=== PATIENT | male | born 1955 | race Caucasian/White ===

== ENCOUNTER 2018-10-03 08:57 | Emergency (ER) | payer OTHER, SELFPAY ==
[2018-10-03 09:02] VITALS: BP 151/76; PULSE 68; RESP 12; TEMP 36.8; O2SAT 100
--- NOTE | 2018-10-03 09:22 | ED.UPPEXIN ---
HPI - Extremity Injury (Upper) General Chief Complaint: Extremity Injury, Upper Stated Complaint: numb/tingle hands x2 days Time Seen by Provider: 10/03/18 09:06 Source: patient Mode of arrival: ambulatory Limitations: no limitations History of Present Illness HPI narrative: Patient is a 63-year-old male presenting with bilateral hand numbness and tingling ongoing for the last 3 days. He has history of a CABG in both radial arteries have been used. His he denies any coldness. 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 He feels like they go to sleep at times. He has no chest pain or shortness of breath or back pain. He denies any specific injury MD complaint: injury to: left, right and hand Onset (ago): day(s) (3) Related Data Allergies Allergy/AdvReac Type Severity Reaction Status Date / Time No Known Drug Allergies Allergy Verified 10/03/18 09:14 Review of Systems Review of Systems ROS Unobtainable: All systems reviewed & are unremarkable except as noted in HPI and below Constitutional Denies chills, Denies fever(s), Denies lethargy and Denies weakness ENT Ears, Nose, Mouth, and Throat: Denies neck pain Cardiovascular Denies chest pain, Denies irregular heart rhythm, Denies lightheadedness, Denies palpitations, Denies dyspnea, Denies dyspnea on exertion and Denies orthopnea Respiratory Denies cough, Denies dyspnea, Denies dyspnea on exertion and Denies wheezing Gastrointestinal Gastrointestinal: Denies abdominal pain, Denies change in bowel habits, Denies diarrhea, Denies nausea and Denies vomiting Genitourinary Denies hematuria, Denies flank pain, Denies urinary incontinence and Denies urinary urgency Musculoskeletal Reports system reviewed and no additional complaints, except as docu, Denies muscle weakness and Denies neck pain Integumentary/Breasts Denies pruritus, Denies erythema, Denies rash and Denies wounds Neurologic Denies weakness Endocrine Denies palpitations Allergic/Immunologic Denies wheezing [facility] Medical History Hyperlipidemia (Acute) Hypertension (Acute) Peripheral vascular disease (Acute) S/P CABG x 4 (Acute) Surgical History S/P CABG x 4 (Acute) Social History Smoking Status: Current some day smoker alcohol intake: never substance use type: does not use Exam Initial Vital Signs Initial Vital Signs: Vital Signs Temperature 98.3 F 10/03/18 09:02 Pulse Rate 68 10/03/18 09:02 Respiratory Rate 12 10/03/18 09:02 Blood Pressure 151/76 H 10/03/18 09:02 Pulse Oximetry 100 10/03/18 09:02 GENERAL: Well-appearing, well-nourished and in no acute distress. HEENT: Head atraumatic,EOMI, pupils reactive, neck is supple CARDIOVASCULAR: Regular rate and rhythm without murmurs, rubs or gallops. RESPIRATORY: Breath sounds equal bilaterally, no wheezes rales or rhonchi. ABDOMEN: Soft, nontender. Normoactive bowel sounds all 4 quadrants. No guarding or rebound. EXTREMITIES: Normal range of motion, no clubbing or edema. Neurovascularly intact Both forearms have a radial artery scars. His bilateral strong ulnar pulses 2/4. Cap refill less than 2 sec. Radial ulnar and median nerves intact. Negative Phalen and Tinel sign NEUROLOGICAL: Alert and oriented x4.Normal gait and speech. Cranial nerves II through XII grossly intact. SKIN: Warm, dry, no laceration, no petechiae, no rashes or lesions. Course Vital Signs - 8 hr 10/03/18 09:02 Temperature 98.3 F Pulse Rate 68 Respiratory Rate 12 Blood Pressure 151/76 H Pulse Oximetry 100 MDM - Extremity Injury (Upper) MDM Narrative Medical decision making narrative: The patient has bilateral hand numbness consistent with carpal tunnel based on history and job profession. He has known coronary artery disease and is an avid smoker. 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 He has appointment with his PCP today at 3:00 p.m.. He is given bilateral wrist splints. Discharge Plan Departure Patient Disposition: Home Clinical Impression: Bilateral carpal tunnel syndrome Discharge Date/Time: 10/03/18 09:48 Interventions: ED Discharge Assessment Last Done: 10/03/18 09:47 Instructions: Carpal Tunnel Syndrome Activity Restrictions/Additional Instructions: *You have been diagnosed with carpal tunnel *What to do: Wear wrist splints bilaterally while at work an active also at night may remove for showering and short times during the day *Continue to take medications as directed *Follow up with your primary care provider as scheduled today at 3:00 p.m. *Return to ER if you should have increased weakness, chest pain, shortness of breath or any new, worsening or concerning symptoms Referrals: Heriberto Vivas MD [Primary Care Provider] -
== END 2018-10-03 09:48 | disposition home or self-care (01) ==
PROVIDERS: Emergency Provider Emergency Medicine; Family Provider Family Medicine; PCP Family Medicine
DX: G56.03 Carpal tunnel syndrome, bilateral upper limbs (principal)
CPT/HCPCS: 29260; 99282

== ENCOUNTER 2020-02-26 20:00 | Emergency (ER) | payer OTHER, SELFPAY ==
[2020-02-26 20:21] VITALS: BP 149/82; PULSE 74; RESP 24; TEMP 36.7; O2SAT 96
--- NOTE | 2020-02-26 20:58 | ED.EAR ---
HPI - Ear Problem <DANIELA Ramey - Last Filed: 02/26/20 21:03> General Chief complaint: Ear Stated complaint: BUG IN LEFT EAR Time Seen by Provider: 02/26/20 20:46 Source: patient Mode of arrival: Ambulatory Limitations: no limitations History of Present Illness HPI Narrative: The patient is a 65-year-old male current smoker who denies pertinent medical history presents with a chief complaint of a bug in his left ear. Happened approximately 20 minutes prior to arrival when he was speaking on the cell phone outside with brother. He was not able to remove it himself so he came to the emergency department. Moth was removed by nursing in the emergency department Related Data Allergies Allergy/AdvReac Type Severity Reaction Status Date / Time No Known Drug Allergies Allergy Verified 10/03/18 09:14 Review of Systems <DANIELA Ramey - Last Filed: 02/26/20 21:03> Review of Systems Narrative: GENERAL: Denies chills, fatigue, malaise, fever, sweats. HEENT: See HPI RESPIRATORY: Denies dyspnea, cough, wheezing, hemoptysis, sputum. CARDIOVASCULAR: Denies chest pain, palpitations, orthopnea, edema, GASTROINTESTINAL: Denies nausea, vomiting, abdominal pain, diarrhea, constipation, melena. : Denies dysuria, frequency, incontinence, hematuria, urinary retention. MUSCULOSKELETAL: denies weakness, joint pain, or bony pain SKIN: Denies rash, skin lesions, or other NEUROLOGIC: Denies weakness, headache, numbness, change in speech, confusion, seizures, incoordination. PSYCHIATRIC: No concerning psychosocial issues. 12 point review of systems is negative except for those stated above Patient History <DANIELA Ramey - Last Filed: 02/26/20 21:03> Medical History Hyperlipidemia (Acute) Hypertension (Acute) Peripheral vascular disease (Acute) Surgical History S/P CABG x 4 (Acute) Social History Smoking Status: Current some day smoker alcohol intake: never substance use type: does not use Smoking Status: Current some day smoker Exam <ROGELIO Ramey-SUDHEER - Last Filed: 02/26/20 21:03> Narrative Exam Narrative: GENERAL: This is a well-nourished, well-developed patient, in no acute distress HEAD: Atraumatic. Normocephalic. No temporal or scalp tenderness. EYES: Pupils equal round and reactive. Extraocular motions intact. No scleral icterus. No injection or drainage. ENT: Nose without bleeding, purulent drainage or septal hematoma. Airway patent. Bilateral TMs pearly zavala. No foreign bodies bilateral ear canals. NECK: Trachea midline. No JVD or lymphadenopathy. Supple, nontender, no meningeal signs. CARDIOVASCULAR: Regular rate and rhythm RESPIRATORY: No cough. No increased respiratory effort. No accessory muscle use. GASTROINTESTINAL: Abdomen soft, non-tender, nondistended. No hepato-splenomegaly, or palpable masses. No guarding. EXTREMITIES: No clubbing, cyanosis, or edema. No joint tenderness, effusion, or edema noted. NEURO: AOx3. SKIN: No rash or erythema on visible skin Initial Vital Signs Initial Vital Signs: Vital Signs Temperature 98.0 F 02/26/20 20:21 Pulse Rate 74 02/26/20 20:21 Respiratory Rate 24 02/26/20 20:21 Blood Pressure 149/82 H 02/26/20 20:21 Pulse Oximetry 96 02/26/20 20:21 <Heriberto Laguerre DO - Last Filed: 02/26/20 22:19> Initial Vital Signs Initial Vital Signs: Vital Signs Temperature 98.0 F 02/26/20 20:21 Pulse Rate 74 02/26/20 20:21 Respiratory Rate 24 02/26/20 20:21 Blood Pressure 149/82 H 02/26/20 20:21 Pulse Oximetry 96 02/26/20 20:21 Course <ROGELIO Ramey-SUDHEER - Last Filed: 02/26/20 21:03> Vital Signs Vital signs: Vital Signs - 8 hr 02/26/20 20:21 Temperature 98.0 F Pulse Rate 74 Respiratory Rate 24 Blood Pressure 149/82 H Pulse Oximetry 96 <Heriberto Laguerre DO - Last Filed: 02/26/20 22:19> Vital Signs Vital signs: Vital Signs - 8 hr 02/26/20 20:21 Temperature 98.0 F Pulse Rate 74 Respiratory Rate 24 Blood Pressure 149/82 H Pulse Oximetry 96 Medical Decision Making <Leti Leggett, RACKING MACHINE OPERATOR-BC - Last Filed: 02/26/20 21:03> [facility] Narrative Medical decision making narrative: The patient is a 65-year-old male who presents with a chief complaint of a foreign body in his ear. A moth was removed by nursing. He has no acute findings on ENT exam afterwards I discussed at length monitoring for pain, drainage etc. Encouraged follow-up with primary care provider, patient already has an appointment scheduled tomorrow. Patient has no questions or concerns upon discharge and states understanding of return precautions as well as follow-up care. Discharge Plan Departure Patient Disposition: Home Clinical Impression: Ear foreign body Qualifiers: Encounter type: initial encounter Laterality: left Qualified Code(s): T16.2XXA - Foreign body in left ear, initial encounter Discharge Date/Time: 02/26/20 21:08 Instructions: DI for Removal of Foreign Body From Ear Activity Restrictions/Additional Instructions: Thank you for trusting us with your care today Today we removed a bug from your ear Please monitor for any other ear foreign bodies Please come back to emergency department for any acute concerns Referrals: Heriberto Vivas MD [Primary Care Provider] - <Heriberto Laguerre DO - Last Filed: 02/26/20 22:19> Cosign ED Attending Cosignature Attestation: Dr Laguerre Co-Sign Statement: I was available for consultation during this patient's emergency department visit. This chart is signed by myself for administrative purposes only. I did not have direct contact with this patient during this visit. They were seen independently by the APC.
== END 2020-02-26 21:08 | disposition home or self-care (01) ==
PROVIDERS: Emergency Provider Nurse Practitioner Family; Family Provider Family Medicine; PCP Family Medicine
DX: T16.2XXA Foreign body in left ear, initial encounter (principal)
CPT/HCPCS: 99281

== ENCOUNTER 2020-09-27 19:15 | Emergency (ER) | payer OTHER, SELFPAY ==
[2020-09-27 19:20] VITALS: BP 115/73; PULSE 87; RESP 15; TEMP 36.7; O2SAT 95; BMI 25.8
--- NOTE | 2020-09-27 19:40 | ED.WOUNDLAC ---
HPI - Wound/Laceration General Chief Complaint: Wound/Laceration Stated Complaint: left thumb wound from cutting onions Time Seen by Provider: 09/27/20 19:26 Source: patient Mode of arrival: Ambulatory Limitations: no limitations History of Present Illness HPI narrative: 65-year-old gentleman with a history of cardiovascular disease and hypertension in his usual state of health this evening and was chopping vegetables at when he managed to chop off the medial portion of the pad of his left thumb. He is currently on both Plavix and aspirin and has been unable to control the bleeding. Pain is minimal. There are no other injuries. It was a clean knife otherwise. Related Data Allergies Allergy/AdvReac Type Severity Reaction Status Date / Time No Known Drug Allergies Allergy Verified 10/03/18 09:14 Review of Systems Review of Systems Narrative: Remainder of review of systems including constitutional, ENT, cardiovascular, respiratory, GI, , musculoskeletal, skin, neurologic and psychiatric systems reviewed and are unremarkable except as noted in HPI. Patient History Medical History Hyperlipidemia Hypertension Peripheral vascular disease Surgical History S/P CABG x 4 Social History Smoking Status: Current some day smoker alcohol intake: never substance use type: does not use Smoking Status: Current some day smoker alcohol intake frequency: 0-2 drinks per day Substance Use Type: does not use Exam Narrative Exam Narrative: General: Alert appropriate in no acute distress Respiratory: Able to speak in full sentences, no obvious respiratory distress Skin: No obvious rashes, warm and dry Neurologic: Grossly intact no obvious asymmetries or abnormalities Psych: appropriate insight and affect, cooperative Extremity: Left thumb with 1.5 cm wound not involving the nail bed. Small vessel at the base that is still bleeding. Otherwise neurovascularly intact Initial Vital Signs Initial Vital Signs: Vital Signs Temperature 98.1 F 09/27/20 19:20 Pulse Rate 87 09/27/20 19:20 Respiratory Rate 15 09/27/20 19:20 Blood Pressure 115/73 09/27/20 19:20 Pulse Oximetry 95 09/27/20 19:20 Procedures Laceration Repair L thumb: Site: hand Side (If applicable): left Size (cm): 1.5 Description: clean (Partial removal of the distal thumb pad without involving nail bed, bone or deeper structures) Depth: simple, single layer Local Anesthetic: lidocaine 1% and with bicarb Amount of anesthesia used (mL): 4 Pre-repair: irrigated extensively Skin layer closed with: vicryl Size (cm): 4-0 Number of sutures: 2 Technique: simple, interrupted and horizontal mattress (for hemostasis) Course Orders Ordered: Discontinued Medications Bacitracin (Bacitracin Oint 0.9 Gm Pckt) 1 applic TOP NOW ONE Stop: 09/27/20 20:01 Lidocaine/Sodium Bicarbonate (Lido 1%/Sod Bicarb 8.4% (10ml) 10 Ml Syringe) 10 ml INJ NOW ONE Stop: 09/27/20 19:41 Last Admin: 09/27/20 20:00 Dose: 10 ml Documented by: Vital Signs Vital signs: Vital Signs - 8 hr 09/27/20 19:20 Temperature 98.1 F Pulse Rate 87 Respiratory Rate 15 Blood Pressure 115/73 Pulse Oximetry 95 MDM - Wound/Laceration MDM Narrative Medical decision making narrative: Uncomplicated laceration of the left distal thumb had with persistent bleeding despite pressure. patient is on Plavix and aspirin. To sutures placed for hemostasis. Patient tolerated the procedure well. Wound distressed and he is safe for home discharge Discharge Plan Departure Patient Disposition: Home Clinical Impression: Laceration Instructions: DI for Laceration Repair Activity Restrictions/Additional Instructions: Thank you for coming in today I am glad your kitchen knives or so sharp. Fortunately was a nice clean wound to your left thumb. There is a tiny little blood vessel at the bottom that was still bleeding. I put in 2 stitches to help stop the bleeding and close the area that will need to heal by itself. You can use Tylenol if your experiencing any pain. Please keep some antibiotic ointment and a Band-Aid over the wound while it is healing. You will need to have this sutures removed in 5 days on or about October 02 If you have increasing redness, pain or any type of drainage you need to return to the emergency department for further evaluation.
[2020-09-27] MEDS: LIDO 1%/SOD BICARB 8.4% (10ML) 10 ML SYRINGE INJ (20:00)
[2020-09-27] MEDS: BACITRACIN OINT 0.9 GM PCKT 1 APPLIC TOP (20:13)
[2020-09-27] MEDS: ACETAMINOPHEN 325 MG TABLET 650 MG PO (20:18)
[2020-09-27 20:19] VITALS: BP 111/68; PULSE 64; RESP 16; O2SAT 97
== END 2020-09-27 20:19 | disposition home or self-care (01) ==
PROVIDERS: Emergency Provider Emergency Medicine
DX: S61.012A Laceration without foreign body of left thumb without damage to nail, initial encounter (principal); W26.0XXA Contact with knife, initial encounter; E78.5 Hyperlipidemia, unspecified; I10 Essential (primary) hypertension
CPT/HCPCS: 12001; 99281; 99283

== ENCOUNTER → 2022-03-29 07:44 | Outpatient (CLI) | payer OTHER, SELFPAY ==
[2022-03-29 08:08] LABS: COVID19 -Nasal RAPID Negative (Negative)
== END ==
PROVIDERS: PCP Family Medicine; Visit Provider Nurse Practitioner Family
DX: Z20.822 Contact with and (suspected) exposure to COVID-19 (principal)
CPT/HCPCS: 87635

== ENCOUNTER 2022-11-18 08:56 | Day surgery (SDC) | payer OTHER, SELFPAY ==
--- NOTE | 2022-11-18 | PATH_ITS ---
[facility] Accession Number: [id number] No. of containers..02 Tissue . 01 Material submitted: . PART A: colon - SIGMOID POLYPS X3 PART B: rectum - RECTAL POLYP X2 . 01 Diagnosis: A. Sigmoid Colon Polyps: Hyperplastic polyp x3. . B. Rectal Polyps: Tubular adenomas and hyperplastic polyps (2 polyps removed). MRV 11/23/2022 1404 Local . 01 Electronically signed: . Filemon Samuels MD, PhD, Pathologist NPI- [id number] . 01 Gross description: . Part A: SIGMOID POLYPS X3: Received in formalin are 3 fragment(s) of portillo, soft tissue measuring 0.2 x 0.2 x 0.2 cm to 0.6 x 0.2 x 0.2 cm submitted entirely in 1 cassette(s) Part B: RECTAL POLYP X2: Received in formalin are multiple fragment(s) of portillo, soft tissue measuring 0.1 x 0.1 x 0.1 cm to 0.7 x 0.6 x 0.6 cm submitted entirely in 1 cassette(s) /FEMI 11/19/2022 0144 Local . 01 Pathologist provided ICD-10: D12.8, K63.5 . 01 CPT . 679031, 898766 Specimen Comment: A courtesy copy of this report has been sent to [phone] Performed at: 01 [facility] [address] [place] [id number] MD Gustavo Mera MD Phone: [phone]
[2022-11-18 09:10] VITALS: BP 155/88; PULSE 84; RESP 16; TEMP 36.2; O2SAT 97; BMI 25.0
[2022-11-18] MEDS: LACTATED RINGERS 1,000 ML 120 ML IV (09:18)
--- NOTE | 2022-11-18 09:26 | PM.HP.1 ---
History of Present Illness History of Present Illness Date Patient Seen: 11/18/22 Time Patient Seen: 09:26 Chief complaint: Colonoscopy Narrative: Arpan is here for his colonoscopy. Please see the office note from July for details. Patient History Medical History (Updated 07/14/22 @ 15:43 by Fady Campos MD) Hyperlipidemia Hypertension Peripheral vascular disease Surgical History (Updated 11/18/22 @ 09:08 by Nilson Almendarez RN) S/P CABG x 4 Stented coronary artery Family & Social History Social History: household members family lives independently Yes Tobacco & Substance use: Tobacco type cigarettes Smoking Status Current some day smoker Smoking packs per day 1 alcohol intake current alcohol intake frequency 0-2 drinks per day Substance Use Type does not use Meds Home Medications and Allergies Home Medications Medication Instructions Recorded Confirmed Type aspirin 81 mg tablet,delayed 81 mg PO DAILY 07/14/22 11/18/22 History release (Adult Aspirin Regimen) atorvastatin 80 mg tablet 80 mg PO DAILY 07/15/22 11/18/22 History bupropion HCl 150 mg 24 hr tablet, 150 mg PO QAM 07/15/22 11/18/22 History extended release lisinopril 10 mg tablet 10 mg PO DAILY 07/15/22 11/18/22 History metoprolol tartrate 25 mg tablet 25 mg PO BID 07/15/22 11/18/22 History Allergies Allergy/AdvReac Type Severity Reaction Status Date / Time seasonal Allergy Mild Congested Uncoded 07/14/22 15:26 Exam Vital Signs (past 8 hours): - 11/18/22 09:10 Temperature 97.1 F L Pulse Rate 84 Respiratory Rate 16 Blood Pressure 155/88 H Pulse Oximetry 97 Const General: healthy appearing Assessment & Plan Assessment and plan (1) Positive FIT (fecal immunochemical test): Status: Acute Plan Arpan is a 67-year-old man with a positive fit test. We reviewed the risks and benefits of colonoscopy he would like to proceed. Time Spent With Patient Critical Care time: I spent a total of [] minutes of critical care time on this patient's care today; this time is exclusive of procedural time.
--- NOTE | 2022-11-18 10:05 | PM.OP.COLON ---
Operative Date/Time/Diagnoses Date of procedure: 11/18/22 Time of procedure: 10:05 Pre-op diagnosis: Positive fit test Post-op diagnosis: same Procedure & Clinicians Study performed: Colonoscopy Same procedure as scheduled: Yes Surgeon: Fady Campos Procedure Notes Procedure in detail: Surgeon: Fady Campos MD Anesthesia: Maggie Marie FIRST AID OFFICER Procedure: The patient was brought to the endoscopy suite, placed in left lateral decubitus position. The patient was connected to monitoring devices. A time-out was performed. Sedation was administered. Once the patient was adequately sedated, a digital rectal exam was performed and was normal. The scope was then inserted and advanced to the cecum where the appendiceal orifice was identified and photographed. The scope was then slowly withdrawn over greater than 6 minutes. The mucosa was thoroughly inspected. There were 3 polyps in the sigmoid colon. One of them was about 5 mm and 1 was removed with a cold forceps. Two of them were about 8 mm and were removed with cold snare. There were 3 polyps in the rectum. One of these was about a cm and was flat. Another 1 was about 6 mm and was flat. The third 1 was about 3 mm. The 1 cm polyp was lifted with a saline lift and removed with a hot snare. The edge of the polypectomy site was inspected and there appeared to be a little bit of residual polypoid tissue and this was removed with a cold snare. The 6 mm polyp was lifted with a saline lift and removed with a cold snare. The 3 mm polyp was removed with a cold forceps. The scope was retroflexed in the rectum. No other abnormalities were seen. The scope was straightened and removed. The patient was awakened and brought to recovery. Scope withdrawal time: 19 minutes Sedation time: 21 minutes EBL: 5 mL Findings: Multiple polyps in the sigmoid and rectum as detailed above. Post-procedure Disposition: PACU
[2022-11-18 10:07] VITALS: BP 88/54; PULSE 69; RESP 20; TEMP 36.8; O2SAT 95
[2022-11-18 10:12] VITALS: BP 90/56; PULSE 69; RESP 14; TEMP 36.7; O2SAT 97
[2022-11-18 10:16] VITALS: BP 109/66; PULSE 67; RESP 12; TEMP 36.7; O2SAT 98
[2022-11-18 10:22] VITALS: BP 112/70; PULSE 70; RESP 14; TEMP 36.5; O2SAT 97
== END 2022-11-18 10:31 | disposition home or self-care (01) ==
PROVIDERS: PCP Family Medicine; Referring Provider Surgery; Visit Provider Surgery
PROC: 0DJD8ZZ Inspection of Lower Intestinal Tract, Via Natural or Artificial Opening Endoscopic (ICD-10-PCS; CPT 45378; principal; 2022-11-18 10:00)
DX: Z12.11 Encounter for screening for malignant neoplasm of colon (principal); R19.5 Other fecal abnormalities; D12.8 Benign neoplasm of rectum
CPT/HCPCS: 45381; 45385; 45380; J2704

== ENCOUNTER → 2023-11-10 07:59 | Outpatient (CLI) | payer OTHER, SELFPAY ==
--- NOTE | 2023-11-10 08:01 | DI.RAD.S_ITS ---
PROCEDURE: FL BARIUM SWALLOW INDICATIONS: GASTROESOPHAGEAL REFLUX DISEASE COMPARISON: None. FINDINGS: Function: There is delayed esophageal peristalsis, with tertiary contractions. No elicited gastroesophageal reflux. Tiny hiatal hernia. IMPRESSION: Moderate esophageal dysmotility. Tiny hiatal hernia, without documented gastroesophageal reflux. Dictated by: Jh Mckenzie M.D. on 11/10/2023 at 14:42 Approved by: Jh Mckenzie M.D. on 11/10/2023 at 14:45
== END ==
LOC: RAD 08:00
PROVIDERS: PCP Family Medicine; Referring Provider Family Medicine; Visit Provider Family Medicine
DX: K21.9 Gastro-esophageal reflux disease without esophagitis (principal); R13.14 Dysphagia, pharyngoesophageal phase; K22.4 Dyskinesia of esophagus
CPT/HCPCS: 74220

== ENCOUNTER 2024-07-02 09:15 | Observation (INO) | payer OTHER, MEDICARE, SELFPAY ==
[2024-07-02] VITALS (17 sets, daily range): BP systolic 125–191; BP diastolic 63–103; PULSE 57–77; RESP 12–23; TEMP 36.6; O2SAT 94–99; BMI 26.6
--- NOTE | 2024-07-02 09:33 | DI.CT.S_ITS ---
PROCEDURE: CT HEAD/BRAIN WO CON INDICATIONS: vertigo, left sided weakness/numbness TECHNIQUE: Noncontrast 4.5 mm thick angled axial sections acquired from the foramen magnum to the vertex, with coronal and sagittal reformats. For radiation dose reduction, the following was used: automated exposure control, adjustment of mA and/or kV according to patient size. COMPARISON: [facility], CT, CT ANGIO HEAD AND NECK, 07/02/2024, 9:43. FINDINGS: Image quality: Diagnostic. CSF spaces: Basal cisterns are patent. No extra-axial fluid collections. The ventricles are symmetric in size and shape. Brain: No intracranial bleeds or masses. There is cerebral volume loss for age, with resultant ventricular and sulcal prominence. There are periventricular and deep white matter chronic small vessel ischemic changes. There is intracranial internal carotid artery atherosclerosis. Skull and face: Calvarium and visualized facial bones appear intact, without suspicious lesions. Sinuses: Visualized sinuses and mastoids are clear. IMPRESSION: No imaging explanation is found for this patient's presenting symptoms. If there is strong clinical suspicion for an acute stroke, please consider a brain MRI for further evaluation, as it is more sensitive (assuming that there is no contraindication to MRI). Dictated by: Parveen Anglin M.D. on 07/02/2024 at 9:08 Approved by: Parveen Anglin M.D. on 07/02/2024 at 9:09
--- NOTE | 2024-07-02 09:33 | DI.CT.S_ITS ---
PROCEDURE: CT ANGIO HEAD AND NECK INDICATIONS: vertigo, left sided weakness/numbness TECHNIQUE: After the administration of intravenous contrast, 1 mm thick sections acquired from the aortic arch through the [place]. 3-dimensional npowjub-nkmhtcexm-elqganvasd (MIP) and/or volume rendering reformats were acquired of the central intracranial vasculature and neck separately. For radiation dose reduction, the following was used: automated exposure control, adjustment of mA and/or kV according to patient size. COMPARISON: [facility], CT, CT HEAD/BRAIN WO CON, 07/02/2024, 9:43. FINDINGS: Image quality: Limited by bolus timing, with venous contamination. BRAIN: CSF spaces: Ventricles are normal in size and shape. Basal cisterns are patent. No extra-axial fluid collections. Brain: No significant abnormality of the brain can be seen. Skull and face: Calvarium and facial bones appear intact, without suspicious lesions. Orbits appear normal. Sinuses: Sinuses and mastoids are clear. HEAD CT ANGIOGRAPHY: Anterior circulation: Intracranial internal carotid arteries are normal in size and flow. The flow within the paired anterior cerebral arteries is normal and symmetric. The flow within the middle cerebral arteries is normal and symmetric. The anterior communicating artery is seen. No aneurysms are seen. Posterior circulation: The left V4 segment is within normal limits. There is an area of complete occlusion within the right V4 segment. Flow within the posterior cerebral arteries is normal and symmetric. No aneurysms are seen. NECK CT ANGIOGRAPHY: Carotid system: The great vessels demonstrate a conventional anatomy as they arise from the aortic arch. The origins of the common carotid arteries appear patent. The common carotid arteries demonstrate normal caliber and courses. The bifurcation regions demonstrate dense atherosclerotic irregularity and calcification. There is 80% narrowing seen involving the origin of the left internal carotid artery, with 50% narrowing involving the origin of the right internal carotid artery. Posterior circulation: The origins of the vertebral arteries both appear widely patent. The more superior extracranial portions of both vertebral arteries also demonstrate normal courses and calibers. The left vertebral artery is dominant to the right. Soft tissues: Visualized neck soft tissues demonstrate no suspicious abnormalities. Bones: No suspicious bony lesions. Visualized cervical spine appears normally aligned. Sternotomy wires are seen. IMPRESSION: An area of complete occlusion can be seen within the right V4 segment. The intracranial arteries are otherwise within normal limits. Focal narrowing can be seen involving the internal carotid artery origins, 80% narrowing on the left and 50% narrowing on the right. Additional findings: Sternotomy Any quantitative measurements of stenosis were performed using NASCET criteria. Dictated by: Parveen Anglin M.D. on 07/02/2024 at 9:17 Approved by: Parveen Anglin M.D. on 07/02/2024 at 9:19
--- NOTE | 2024-07-02 09:38 | ED_ITS ---
HPI - Neuro Symptoms/Deficit General Chief Complaint: Neuro Symptoms/Deficit Stated Complaint: Dizziness Time Seen by Provider: 07/02/24 09:20 Source: patient and EMS Mode of arrival: EMS Limitations: no limitations History of Present Illness HPI Narrative: This is a 69-year-old male with history of CABG on aspirin daily with a history of vertigo who presents with complaint of waking up at about 430 this morning with vertigo but also noted left-sided sensation of weakness and numbness tingling of the entire left side. Patient states vertigo he will often get but states the left-sided changes are different denies any fevers or chills. EMS states that friends noticed his speech seemed different patient states his speech is normal. Denies any difficulty with speech or expressive aphasia. Denies any chest pain or shortness of breath denies any headache, describes standing up and moving rapidly worsening his vertigo symptoms. Patient states he has had nausea but no vomiting after EMS gave Zofran 4 mg. States he has had decreased bowel movements lately but has had small amounts of constipated stools. Does feel some fullness in his left lower quadrant but denies any pain and feels like he needs to have a bowel movement for the last day or 2. Denies any back or flank pain. Denies any new urinary symptoms although he states he has some issues at nighttime with urination. Notes left side seems a little bit weaker and number in general. Patient's last normal was last night before going to bed. States he is on aspirin 81 mg daily but no other anticoagulants currently takes metoprolol, lisinopril, Wellbutrin to attempt to help with quitting smoking. Has a history of CABG, also had a lipoma removed from his left side in the past. Does use tobacco daily, drinks 2 alcoholic drinks daily, denies any marijuana recreational drugs. States Dr. Abbasi is his primary care physician On Anticoagulants: No Related Data Home Medications Medication Instructions Recorded Confirmed aspirin 81 mg tablet,delayed 81 mg PO DAILY 07/14/22 07/02/24 release (Adult Aspirin Regimen) atorvastatin 80 mg tablet 80 mg PO DAILY 07/15/22 07/02/24 bupropion HCl 150 mg 24 hr tablet, 150 mg PO QAM 07/15/22 07/02/24 extended release lisinopril 10 mg tablet 10 mg PO DAILY 11/10/22 10/28/24 metoprolol tartrate 25 mg tablet 25 mg PO BID 07/15/22 07/02/24 Allergies Allergy/AdvReac Type Severity Reaction Status Date / Time seasonal Allergy Mild Congested Uncoded 07/02/24 09:29 Review of Systems Review of Systems ROS Unobtainable: All systems reviewed & are unremarkable except as noted in HPI and below Hematologic/Lymphatic On Anticoagulants: No Patient History Medical History Hypertension Hyperlipidemia Peripheral vascular disease Surgical History Stented coronary artery S/P CABG x 4 Social History marital status: unmarried,single household members: family lives independently: Yes occupational status: employed Smoking Status: Current every day smoker alcohol intake: current substance use type: does not use Smoking Status: Current every day smoker alcohol intake frequency: 3 or more drinks per day Substance Use Type: does not use Exam Narrative Exam Narrative: GEN: well nourished, well appearing male, alert and oriented x 3, patient appears to be in mild distress. HEENT: Atraumatic, pupils are equal round reactive to light, extraocular movements are intact, nares are clear, TMs are clear with no fluid, there is no conjunctival pallor. Throat is clear without any exudates, erythema, tonsillar enlargement or uvular deviation HEART: Regular rate and rhythm without murmur, clicks, rubs. LUNGS:Lungs clear to auscultation, no wheezes, rales, crackles, chest moves symmetrically ABD:bowel sounds normal, soft, non-tender, no guarding, rebound, rigidity, no masses noted, no hepatosplenomegaly :No CVA tenderness MSCL: Non-tender, no muscle atrophy, muscles strength 5/5 upper and lower extremities, full range of motion NEURO:CN 2-12 intact, patient notes differences in sensation left compared to right, finger nose finger test normal, heel-arredondo test more difficult in the left but patient able to accomplish. Slightly dysarthric but patient states that is his normal baseline. Initial Vital Signs Initial Vital Signs: Vital Signs Pulse Rate 62 07/02/24 09:20 Respiratory Rate 22 07/02/24 09:20 Pulse Oximetry 98 07/02/24 09:20 Scores NIH Stroke Scale Level of Conciousness: Alert, keenly responsive Ask month/age: Answers both questions correctly. Open/close eyes, close hand: Performs both tasks correctly Best gaze horizontal: Normal Visual greene: No visual loss Facial palsy: Minor paralysis, flattened nasolabial fold, asymmetry on smiling Left arm drift: No drift for full 10 sec Right arm drift: No drift for full 10 sec Left leg drift: Drifts down, not to bed Right leg drift: No drift for full 5 sec Limb ataxia: Present in one limb Sensory on face/arms/legs: Mild to moderate sensory loss, can tell touch Best language: No aphasia, normal Dysarthria: Normal Extinction or inattention: No abnormality Total NIH Stroke scale score: 4 Course Orders Ordered: ED Orders 07/02/24 09:18 Complete Blood Count AUTO DIFF Stat Comprehensive Metabolic Panel Stat Ethanol (ETOH) Stat PTT Partial Thromboplastin Sj Stat Prothrombin Time INR Stat Troponin & CK Cardiac Panel Stat 07/02/24 09:33 CT angio head and neck Stat CT head/brain wo con Stat EKG-12 Lead Stat 07/02/24 11:20 MR head/brain wo con Stat 07/02/24 11:44 Urine Drug Screen, Rapid Stat 07/02/24 11:50 Urinalysis and Microscopic Stat Acetaminophen (Acetaminophen 325 Mg Tablet) 650 mg PO Q6H PRN PRN Reason: Fever/Mild Pain (1-3) Atorvastatin Calcium (Atorvastatin 20 Mg Tablet) 80 mg PO DAILY [facility] Bupropion HCl (Bupropion Xl 150 Mg Tab) 150 mg PO DAILY [facility] Enoxaparin Sodium (Enoxaparin 40 Mg/0.4 Ml Syringe) 40 mg SUBCUT DAILY [facility] Naloxone HCl (Naloxone 0.4 Mg/Ml Vial) 0.2 mg IV Q2MIN PRN PRN Reason: Opiate Reversal Ondansetron HCl (Ondansetron 4 Mg Odt) 4 mg SL Q4HR PRN PRN Reason: Nausea Ondansetron HCl (Ondansetron 4 Mg/2 Ml Inj) 4 mg IV Q4HR PRN PRN Reason: Nausea And Vomiting Last Admin: 07/02/24 11:59 Dose: 4 mg Documented By: KM Discontinued Medications Aspirin (Aspirin 81 Mg Chew Tab) 324 mg PO NOW ONE Stop: 07/02/24 11:09 Last Admin: 07/02/24 11:59 Dose: 324 mg Documented By: VILMA Clopidogrel Bisulfate (Clopidogrel 75 Mg Tablet) 75 mg PO NOW ONE Stop: 07/02/24 11:21 Last Admin: 07/02/24 11:59 Dose: 75 mg Documented By: VILMA Meclizine HCl (Meclizine Hcl 12.5 Mg Tablet) 50 mg PO NOW ONE Stop: 07/02/24 09:34 Last Admin: 07/02/24 10:02 Dose: 50 mg Documented By: VILMA Vital Signs Vital signs: Vital Signs - 8 hr 07/02/24 09:20 07/02/24 09:21 07/02/24 09:21 Temperature Pulse Rate 62 61 Respiratory Rate 22 20 Blood Pressure 143/70 H Pulse Oximetry 98 97 Oxygen Delivery Method 07/02/24 09:24 07/02/24 09:30 07/02/24 09:30 Temperature 97.8 F Pulse Rate 59 L 61 Respiratory Rate 17 Blood Pressure 143/70 H 139/66 Pulse Oximetry 97 98 Oxygen Delivery Method Room Air 07/02/24 10:01 07/02/24 10:01 07/02/24 10:30 Temperature Pulse Rate 64 57 L Respiratory Rate 15 Blood Pressure 128/63 Pulse Oximetry 95 98 Oxygen Delivery Method 07/02/24 10:30 Temperature Pulse Rate Respiratory Rate Blood Pressure 149/68 H Pulse Oximetry Oxygen Delivery Method MDM - Neuro Symptoms/Deficit Lab Data 07/02/24 09:18 07/02/24 09:18 Labs: Lab Results 07/02/24 Range/Units 09:18 WBC 10.0 (4.5-11.0) X10^3/uL RBC 5.17 (4.5-5.9) X10^6/uL Hgb 16.3 (13.5-17.5) g/dL Hct 48.7 (41-53) % MCV 94.2 (80-100) fL MCH 31.5 (26-34) PG MCHC 33.4 (30-36) % RDW 14.1 (11.6-14.8) % Plt Count 266 (150-400) X10^3/uL Neut % (Auto) 70.5 (50-75) % Lymph % (Auto) 21.3 L (25-40) % [place] % (Auto) 5.9 (3-14) % Eos % (Auto) 1.3 L (2-4) % Baso % (Auto) 1.0 (0-2) % Neut # (Auto) 7000 (1634-9873) /uL Lymph # (Auto) 2100 (1464-6494) /uL [place] # (Auto) 600 (0-900) /uL Eos # (Auto) 100 (0-450) /uL Baso # (Auto) 100 (0-100) /uL PT 11.3 (9.4-12.5) SECONDS INR 1.0 (0.9-1.3) APTT 33 (25.1-36.5) SECONDS Sodium 137 (137-145) mmol/L Potassium 4.6 (3.4-5.1) mmol/L Chloride 105 (98-107) mmol/L Carbon Dioxide 23 (22-32) mmol/L BUN 16 (9-20) mg/dL Creatinine 1.04 (0.66-1.25) mg/dL Estimated GFR > 60 (>60) mL/min BUN/Creatinine Ratio 15.4 (6-22) Glucose 134 H (80-110) mg/dL Calcium 9.7 (8.4-10.2) mg/dL Total Bilirubin 0.8 (0.2-1.3) mg/dL AST 31 (17-59) IU/L ALT 22 (<50) IU/L Alkaline Phosphatase 100 (38-126) U/L Total Creatine Kinase 56 (55-170) U/L Troponin I < 0.012 (0.01-0.034) ng/mL Total Protein 7.0 (6.3-8.2) g/dL Albumin 4.3 (3.5-5.0) g/dL Globulin 2.7 (1.7-4.1) g/dL Albumin/Globulin Ratio 1.6 (1.0-2.8) Ethyl Alcohol < 10 ( - 10) mg/dL Imaging Data CTA - brain/neck: Radiologist's Impression: Arpan Jacome??69??M??1955 ? Allergy/Adv: [seasonal] Close Head/Neck CTA (Signed) Parveen Anglin - 07/02/[address] 07/02/24 Barium Swallow X-Ray (Signed) Jh Mckenzie - 11/10/23 Launch?Image [address] [address] [address] Scan Report Signed Patient: Arpan Jacome MR#: [id number] : 1955 Acct:[id number] Age/Sex: 69 / M Date of Service: 07/02/24 Loc: ED Accession Number: [id number] Procedure: CT angio head and neck Ordering Provider: Leti Jackson D.O. PROCEDURE: CT ANGIO HEAD AND NECK INDICATIONS: vertigo, left sided weakness/numbness TECHNIQUE: After the administration of intravenous contrast, 1 mm thick sections acquired from the aortic arch through the [place]. 3-dimensional rqkzeyt-uyrklpqqo-pitajkxmql (MIP) and/or volume rendering reformats were acquired of the central intracranial vasculature and neck separately. For radiation dose reduction, the following was used: automated exposure control, adjustment of mA and/or kV according to patient size. COMPARISON: [facility], CT, CT HEAD/BRAIN WO CON, 07/02/2024, 9:43. FINDINGS: Image quality: Limited by bolus timing, with venous contamination. BRAIN: CSF spaces: Ventricles are normal in size and shape. Basal cisterns are patent. No extra-axial fluid collections. Brain: No significant abnormality of the brain can be seen. Skull and face: Calvarium and facial bones appear intact, without suspicious lesions. Orbits appear normal. Sinuses: Sinuses and mastoids are clear. HEAD CT ANGIOGRAPHY: Anterior circulation: Intracranial internal carotid arteries are normal in size and flow. The flow within the paired anterior cerebral arteries is normal and symmetric. The flow within the middle cerebral arteries is normal and symmetric. The anterior communicating artery is seen. No aneurysms are seen. Posterior circulation: The left V4 segment is within normal limits. There is an area of complete occlusion within the right V4 segment. Flow within the posterior cerebral arteries is normal and symmetric. No aneurysms are seen. NECK CT ANGIOGRAPHY: Carotid system: The great vessels demonstrate a conventional anatomy as they arise from the aortic arch. The origins of the common carotid arteries appear patent. The common carotid arteries demonstrate normal caliber and courses. The bifurcation regions demonstrate dense atherosclerotic irregularity and calcification. There is 80% narrowing seen involving the origin of the left internal carotid artery, with 50% narrowing involving the origin of the right internal carotid artery. Posterior circulation: The origins of the vertebral arteries both appear widely patent. The more superior extracranial portions of both vertebral arteries also demonstrate normal courses and calibers. The left vertebral artery is dominant to the right. Soft tissues: Visualized neck soft tissues demonstrate no suspicious abnormalities. Bones: No suspicious bony lesions. Visualized cervical spine appears normally aligned. Sternotomy wires are seen. IMPRESSION: An area of complete occlusion can be seen within the right V4 segment. The intracranial arteries are otherwise within normal limits. Focal narrowing can be seen involving the internal carotid artery origins, 80% narrowing on the left and 50% narrowing on the right. Additional findings: Sternotomy Any quantitative measurements of stenosis were performed using NASCET criteria. Dictated by: Parveen Anglin M.D. on 07/02/2024 at 9:17 Approved by: Parveen Anglin M.D. on 07/02/2024 at 9:19 ECG Data Attestation: I personally reviewed and interpreted this ECG as follows: Interpretation: Sinus rhythm rate of 60 RI 164 QRS is 76 QTC of 446, no acute ST elevation depression noted. MDM Narrative Medical decision making narrative: 69-year-old male history of vertigo with persistent vertigo this morning upon awakening but also new left-sided numbness tingling and weakness. Does have some mild drift particularly of the left lower extremity in a little bit ataxia patient notes sensation changes of left upper extremity and leg. Patient last known normal is outside the window for TNK. Patient's NIH is 4. Labs show a white count of 10 hemoglobin of 16 platelets of 266. Coags are negative. CMP sodium 137, potassium 4 CO2 of 23 BUN 16 creatinine 1.04 glucose of 134 LFTs are negative troponins negative at less than 0.012. ETOH is negative. Coags are negative EKG shows normal sinus rhythm. Head CT shows no acute stroke, no intracranial bleeds or masses cerebral volume loss for age with a resultant ventricular and sulcal prominence, periventricular and deep white matter chronic small-vessel ischemic changes no intracranial internal carotid artery atherosclerosis noted. Ventricles are symmetric in size and shape. Head and neck CT angio shows complete occlusion can be seen within the right V4 segment. Flow within the posterior cerebral arteries is normal and symmetric. No aneurysms. Otherwise intracranial arteries are within normal limits focal narrowing involving the internal carotid arteries 80% on the left and 50% on the right. Spoke with Dr. Alexander, neurology at [facility]/ recommends admission, MR brain and asks for carotid US bilaterally for better evaluation of carotids. Recommends at this time dual antiplatelet therapy with aspirin daily and Plavix 75 mg x 21 days, cardiac workup with a lipid panel, hemoglobin NAC permissive hypertension. They would like carotid ultrasound bilaterally if MR does not show clear stroke to evaluate for potential need for carotid endarterectomy. They will call back if there is any additional changes to recommendations. Dr. Abbasi, accepts for inpatient. Relayed recommendations from Neurology. Updated Dr. Spicer on updated recommendations from neurology. He saw the patient here in the department after MRI. Stroke Core Measures Exclusion Criteria TPA in CVA: Symptom Onset >3 or 4.5 Hours Discharge Plan Departure Patient Disposition: Admitted As Inpatient Clinical Impression: Acute CVA (cerebrovascular accident) Admit Date/Time: 07/02/24 11:28 Admit Provider: Juan Pablo Abbasi
--- NOTE | 2024-07-02 09:44 | EKG_ITS ---
[address] [address] Test Date: 2024-07-02 Pat Name: Arpan Jacome Department: [facility] Room: Gender: Male [employer]: MARVIN : 1955 Requested By: Order Number: [id number] Reading MD: Kp Vazquez Measurements Intervals Rankin Rate: 60 P: 41 IN: 164 QRS: 8 QRSD: 76 T: 83 QT: 446 QTc: 446 Interpretive Statements Normal sinus rhythm Electronically Signed On 07-03-2024 14:44:02 PDT by Kp Vazquez
[2024-07-02 09:46] LABS: Add Manual Diff / Slide Review NO; Basophils Absolute Auto 100 /uL (0-100); Eosinophils Absolute Auto 100 /uL (0-450); Eosinophils Percent Auto 1.3 % (2-4); Hematocrit 48.7 % (41-53); Hemoglobin 16.3 g/dL (13.5-17.5); Lymphocytes Absolute Auto 2100 /uL (1100-4500); Lymphocytes Percent Auto 21.3 % (25-40); Mean Corpuscular HGB Conc 33.4 % (30-36); Mean Corpuscular Hemoglobin 31.5 PG (26-34); Mean Corpuscular Volume 94.2 fL (80-100); Monocytes Absolute Auto 600 /uL (0-900); Monocytes Percent Auto 5.9 % (3-14); Neutrophils Absolute Auto 7000 /uL (1500-7000); Neutrophils Percent Auto 70.5 % (50-75); Platelet Count 266 X10^3/uL (150-400); Red Blood Cell Count 5.17 X10^6/uL (4.5-5.9); Red Cell Distribution Width 14.1 % (11.6-14.8)
[2024-07-02 09:47] LABS: Prothrombin Time 11.3 SECONDS (9.4-12.5)
[2024-07-02 09:49] LABS: PTT Partial Thromboplastin Tim 33 SECONDS (25.1-36.5)
[2024-07-02 09:53] LABS: Alanine Aminotransferase 22 IU/L (<50); Albumin 4.3 g/dL (3.5-5.0); Albumin Globulin Ratio 1.6 (1.0-2.8); Alkaline Phosphatase 100 U/L (38-126); Aspartate Aminotransferase 31 IU/L (17-59); BUN Creatinine Ratio 15.4 (6-22); Bilirubin Total 0.8 mg/dL (0.2-1.3); Blood Urea Nitrogen 16 mg/dL (9-20); Calcium 9.7 mg/dL (8.4-10.2); Carbon Dioxide 23 mmol/L (22-32); Chloride 105 mmol/L (98-107); Creatine Kinase 56 U/L (55-170); Estimated Glomerular Filt Rate > 60 mL/min (>60); Ethanol (ETOH) < 10 mg/dL; Globulin 2.7 g/dL (1.7-4.1); Glucose 134 mg/dL (80-110); HEMOLYSIS 23 (0-50); Potassium 4.6 mmol/L (3.4-5.1); Sodium 137 mmol/L (137-145)
[2024-07-02] MEDS: MECLIZINE HCL 12.5 MG TABLET 50 MG PO (10:02)
[2024-07-02 10:03] LABS: Troponin I < 0.012 ng/mL (0.01-0.034)
--- NOTE | 2024-07-02 11:20 | DI.MRI.S_ITS ---
PROCEDURE: MR HEAD/BRAIN WO CON INDICATIONS: vertigo, left weak/numb, V4 seg occluded on right TECHNIQUE: Non-contrast axial T1 spin echo, axial T2 fast spin echo, sagittal and axial FLAIR, coronal T2 fast spin echo, axial gradient echo, axial diffusion and ADC through the brain. COMPARISON: None. FINDINGS: Image quality: Excellent. CSF spaces: Ventricles appear symmetric in size and shape. Basal cisterns are patent. No extra-axial fluid collections. Brain: Questionable small focus of restricted diffusion within the right anterior pontomedullary junction (5/55). No other areas of restricted diffusion are seen. No intracranial bleeds or mass effects. There is cerebral volume loss for age. There are periventricular and deep white matter chronic small vessel ischemic changes. Diffusion-weighted images show no acute infarct. Normal intravascular flow voids are present. Skull and face: Calvarial bone marrow is normal in signal. Orbits are normal. Sinuses: Sinuses and mastoids are clear. IMPRESSION: Questionable small focus of restricted diffusion within the right anterior pontomedullary junction, differential includes artifact versus punctate infarct. No other areas of restricted diffusion are identified. Age-related global volume loss and chronic microvascular ischemic changes are present. Dictated by: Salazar Meehan M.D. on 07/02/2024 at 12:19 Approved by: Salazar Meehan M.D. on 07/02/2024 at 12:22
[2024-07-02] MEDS: CLOPIDOGREL 75 MG TABLET PO (11:59)
[2024-07-02] MEDS: ASPIRIN 81 MG CHEW TAB 324 MG PO (11:59)
[2024-07-02] MEDS: ONDANSETRON 4 MG/2 ML INJ IV ×2 (11:59→16:00)
--- NOTE | 2024-07-02 11:59 | PM.HP.1 ---
History of Present Illness History of Present Illness Date Patient Seen: 07/02/24 Time Patient Seen: 11:59 Date of Onset of Symptoms: 07/02/24 Chief complaint: Dizziness Narrative: Pleasant 69yo vasculopath smoker LKMajor last night awoke with new dizziness and L sided weakness - CTA head shows some vascular occlusion - outside window for intervention neuro recs DAPT for 21 days and f/up in stroke center for possible endarterectomy. Getting MRI then carotids if MRI is negative. On exam patient feels weak and nauseous. He took his morning meds today. BP is on high side we are doing permissive hypertension. PFSH Medical History Hypertension Hyperlipidemia Peripheral vascular disease Surgical History Stented coronary artery S/P CABG x 4 Social History marital status: unmarried,single household members: family lives independently: Yes occupational status: employed Smoking Status: Current every day smoker alcohol intake: current substance use type: does not use Meds Home Medications and Allergies Home Medications Medication Instructions Recorded Confirmed Type aspirin 81 mg tablet,delayed 81 mg PO DAILY 07/14/22 07/02/24 History release (Adult Aspirin Regimen) atorvastatin 80 mg tablet 80 mg PO DAILY 07/15/22 07/02/24 History bupropion HCl 150 mg 24 hr tablet, 150 mg PO QAM 07/15/22 07/02/24 History extended release lisinopril 10 mg tablet 10 mg PO DAILY 07/15/22 07/02/24 History metoprolol tartrate 25 mg tablet 25 mg PO BID 07/15/22 07/02/24 History Allergies Allergy/AdvReac Type Severity Reaction Status Date / Time seasonal Allergy Mild Congested Uncoded 07/02/24 09:29 Review of Systems Review of Systems Narrative: all systems reviewed and negative except as otherwise documented in HPI Exam Vital Signs (past 8 hours): - 07/02/24 09:20 07/02/24 09:21 07/02/24 09:21 Temperature Pulse Rate 62 61 Respiratory Rate 22 20 Blood Pressure 143/70 H Pulse Oximetry 98 97 Oxygen Delivery Method 07/02/24 09:24 07/02/24 09:30 07/02/24 09:30 Temperature 97.8 F Pulse Rate 59 L 61 Respiratory Rate 17 Blood Pressure 143/70 H 139/66 Pulse Oximetry 97 98 Oxygen Delivery Method Room Air 07/02/24 10:01 07/02/24 10:01 07/02/24 10:30 Temperature Pulse Rate 64 57 L Respiratory Rate 15 Blood Pressure 128/63 Pulse Oximetry 95 98 Oxygen Delivery Method 07/02/24 10:30 Temperature Pulse Rate Respiratory Rate Blood Pressure 149/68 H Pulse Oximetry Oxygen Delivery Method Oxygen Delivery Method Room Air Narrative Exam Narrative: resting on gurney needing help to get in and out of wheelchair Const Other: well nourished well developed Resp Other: clear to auscultation bilaterally Cardio Other: regular rate well perfused GI Other: soft nontender nondistended Neuro Other: mild L sided facial droop, with weak L side with evident 4/5 in arm and leg alert awake oriented normally conversant Psych Other: grappling with possible reality of debility appropriate Objective Labs 07/02/24 09:18 07/02/24 09:18 Labs: Laboratory Results - last 24 hr 07/02/24 09:18 WBC 10.0 RBC 5.17 Hgb 16.3 Hct 48.7 MCV 94.2 MCH 31.5 MCHC 33.4 RDW 14.1 Plt Count 266 Neut % (Auto) 70.5 Lymph % (Auto) 21.3 L Ventura % (Auto) 5.9 Eos % (Auto) 1.3 L Baso % (Auto) 1.0 Neut # (Auto) 7000 Lymph # (Auto) 2100 [place] # (Auto) 600 Eos # (Auto) 100 Baso # (Auto) 100 PT 11.3 INR 1.0 APTT 33 Sodium 137 Potassium 4.6 Chloride 105 Carbon Dioxide 23 BUN 16 Creatinine 1.04 Estimated GFR > 60 BUN/Creatinine Ratio 15.4 Glucose 134 H Calcium 9.7 Total Bilirubin 0.8 AST 31 ALT 22 Alkaline Phosphatase 100 Total Creatine Kinase 56 Troponin I < 0.012 Total Protein 7.0 Albumin 4.3 Globulin 2.7 Albumin/Globulin Ratio 1.6 Ethyl Alcohol < 10 Assessment & Plan Assessment & Plan narrative: #stroke #vertebral artery occlusion DAPT for 21 days per neuro MRI equivocal, carotid artery scan and echo pending Full workup pending, outside window for acute intervention. permissive htn with statin. PT/OT evals pending. NISS qshift. Prn valium for agitation, prn zofran #primary hypertension hold home BP meds for now #hx of CABG already on statin/ASA 81 #nicotine dependency nicotine patch advised to quit Code: full MDM: son Diet: heart healthy PCP: Ayleen Time-Based Coding :: [TOTAL MINUTES] spent with patient and on the chart (including review of chart, obtaining history, exam, reviewing outside data, placing orders, documenting exam and treatment plan, and counseling patient) on [DATE].
[2024-07-02 12:01] LABS: Ur Creatinine Normal (Normal); Ur Specific Gravity Normal (Normal); Urine Amphetamines Negative (Negative); Urine Barbiturates Negative (Negative); Urine Benzodiazepines Negative (Negative); Urine Cocaine Negative (Negative); Urine MDMA Negative (Negative); Urine Methadone Negative (Negative); Urine Methamphetamines Negative (Negative); Urine Opiates Negative (Negative); Urine Oxycodone Negative (Negative); Urine Phencyclidine Negative (Negative); Urine THC Negative (Negative); Urine Tricyclic Antidepressant Negative (Negative); Urine pH Normal (Normal)
[2024-07-02 15:18] LABS: Appearance Urine UA CLEAR; Bilirubin Urine UA NEGATIVE (NEGATIVE); Color Urine UA YELLOW; Glucose Urine UA NEGATIVE (Negative); Ketones Urine UA 1+ (NEGATIVE); Leukocyte Esterase Urine UA NEGATIVE (NEGATIVE); Nitrite Urine UA NEGATIVE (Negative); Occult Blood Urine UA NEGATIVE (Negative); Protein Urine UA NEGATIVE (Negative); Urobilinogen Urine UA 0.2 E.U./dL (0.2)
[2024-07-02 15:25] LABS: Bacteria Urine Occasional (0-1); Culture Indicated Urine Cult Not Indicated; RBC Urine None Seen (0-5/HPF); Squamous Epithelial Cell Urine 0-1 /HPF (0-5/HPF); Urine Volume 10mL (spun); WBC Urine 0-1/HPF (0-5/HPF)
--- NOTE | 2024-07-02 15:37 | OT.IP.EVAL ---
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 M2 OT-IP Current Condition Start: 07/02/24 15:29 Freq: Status: Active Protocol: Document 07/02/24 15:59 [facility] (Rec: 07/02/24 16:12 [facility] [id number]) Occupational Therapy Current Condition Current Condition Evaluation Date 07/02/24 Treatment Diagnosis ?small focus of restricted diffusion with R anterior pontomedullary junction, LUE/LLE weakness Diagnosis Onset Date 07/02/24 M3 OT- IP Subjective and Pain Start: 07/02/24 15:29 Freq: Status: Active Protocol: Document 07/02/24 15:59 [facility] (Rec: 07/02/24 16:12 [facility] [id number]) OT- Subjective Occupational Therapy Visit Type Type Initial Evaluation Visit Start Time 15:37 Visit Stop Time 15:55 Occupational Therapy Visit Comments Patient Comments Pt agreed to get up. Patient/Caregiver Goals TO get better. M4 OT- IP ADL's Start: 07/02/24 15:29 Freq: Status: Active Protocol: Document 07/02/24 15:59 [facility] (Rec: 07/02/24 16:12 [facility] [id number]) OT EBS-Kcdc-Llvouit Comments OT Self-Feeding Comments Not at meal time, no issues anticipated. OT ADL-Grooming Comments OT Grooming Comments Not performed. OT ADL-Oral Care Comments Oral Care Comments Not performed. OT ADL-Dressing Comments OT Dressing Comments At this time due to decreased balance, pt will needing assist for LB dressing needs. OT ADL-Toileting Comments OT Toileting Comments Pt not having to go. OT ADL-Bathing Comments OT Bathing Comments not performed M5 OT- IP IADL's Start: 07/02/24 15:29 Freq: Status: Active Protocol: Document 07/02/24 15:59 [facility] (Rec: 07/02/24 16:12 [facility] [id number]) OT-Instrumental Activities of Daily Living Deficits IADL Deficits Identified Deficits Home Safety Awareness Awareness of Need for Assistance at Home Good Awareness Medication Management Medication Management Comments Pt states did prior. Meal Preparation Meal Preparation Comments Pt will need assist at this time. Driving Driving Comments Pt will need assist at this time. M6 OT- IP Functional Cognition Start: 07/02/24 15:29 Freq: Status: Active Protocol: Document 07/02/24 15:59 [facility] (Rec: 07/02/24 16:12 [facility] [id number]) Cognitive Factors Limiting Selfcare Function Cognitive Ability Level of Alertness Alert Patient Orientation Name,Place,Situation Attention Span Ability Capable of Focused Attention, Capable of Sustained Attention Ability to Follow Commands Able to Follow One Step Commands Cognitive Comments Cognitive Assessment Comments Pt able to follow commands for ADL and mobility needs. To further assess cognitive needs as pt not feeling well on OT eval. OT- Vision and Hearing OT- Hearing Assessment OT- Hearing Assessment WFL OT- Vision Assessment Visual Acuity Glasses For Reading Visual Attentiveness WFL Occular Pursuits WFL M7 OT- IP Mobility and Balance Start: 07/02/24 15:29 Freq: Status: Active Protocol: Document 07/02/24 15:59 [facility] (Rec: 07/02/24 16:12 [facility] [id number]) OT- Bed Mobility Assessment Supine to Sit Supine to Sit Assist Contact Guard Assistance OT-Transfer Assessment Sit to and From Stand Sit to and from Stand Minimal Assistance Comments Mobility Comments CGA and increased time to get to the edge of the bed. KRISTINA to stand and pt has posterior lean. BP sitting 118/70 and standing 133/72. Just able to stand and having to sit back down due to feeling dizzy. OT- Balance Assessment Sitting Balance and Reactions Static Sitting Balance Ability Fair Dynamic Sitting Balance Ability Fair Standing Balance and Reactions Static Standing Balance Ability Poor M8 OT- IP Objective Assessments Start: 07/02/24 15:29 Freq: Status: Active Protocol: Document 07/02/24 15:59 [facility] (Rec: 07/02/24 16:12 [facility] [id number]) OT Gross Range of Motion Upper Extremity Range of Motion Assessment Left Impaired OT Strength Upper Extremity Strength Assessment Left Impaired Comments Strength Comments LLE 3-/5 to 4-/5 OT- Coordination Assessment Upper Extremity Finger to Nose Test Left UE Impaired Finger Tapping Test Left UE Impaired OT Sensation Assessment Location Left Upper Extremity Light Touch Intact/Normal Proprioception (Position) Impaired M9 OT- IP Assessment and Plan Start: 07/02/24 15:29 Freq: Status: Active Protocol: Document 07/02/24 15:59 [facility] (Rec: 07/02/24 16:12 [facility] [id number]) OT Summary Assessment and Plan Potential Rehabilitation Potential Excellent Analytic Complexity at Evaluation Moderate Summary OT Impairments Balance,Functional Mobility, Grooming,Dressing,Toileting, Bathing,Toilet Transfers, Shower Transfers,Activity Tolerance Progress Towards Goals Slow Progress due to Medical Issues,Slow Progress due to Activity Tolerance Assessment Summary Pt MOD complexity and with weakness and coordination to LUE/LLE, feeling dizzy and at 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 Pt is a good candidate for acute rehab. Goals Self-Feeding Goal Independent Grooming Goal Independent Dressing Goal Independent Toileting Goal Independent Bathing Goal Independent Toilet Transfer Goal Independent Days to Meet Goals 25 Frequency of Treatment Other frequency 5x/week Treatment Plan OT Treatment Plan ADL Training,Functional Cognition Training,Functional Mobility,Patient/Family Education,Discharge Planning Discharge Recommendations OT Discharge Recommendations Acute Rehab Transportation Needs at Discharge Private Vehicle,Wheelchair/ Cabulance
--- NOTE | 2024-07-02 16:09 | PT.IIE ---
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 M2 PT-IP Current Condition Start: 07/02/24 14:02 Freq: NEEDED Status: Active Protocol: Document 07/02/24 15:35 MB (Rec: 07/02/24 16:09 MB [id number]) Physical Therapy Current Condition Current Condition Evaluation Date 07/02/24 Treatment Diagnosis R vertebral artery occlusion, changes right pontomedullary area, dizziness M3 PT-IP Subjective Start: 07/02/24 14:02 Freq: NEEDED Status: Active Protocol: Document 07/02/24 15:35 MB (Rec: 07/02/24 16:09 MB [id number]) Subjective Physical Therapy Visit Type Type Initial Evaluation Visit Start Time 15:35 Visit Stop Time 15:55 Number of DIGITAL MARKETING ASSOCIATE Visits 0 Physical Therapy Visit Comments Patient Comments Pt states he has never felt this way and he feels really bad, including nausea and dizziness M4 PT-IP Mobility and Gait Start: 07/02/24 14:02 Freq: NEEDED Status: Active Protocol: Document 07/02/24 15:35 MB (Rec: 07/02/24 16:09 MB [id number]) PT-Bed Mobility Assessment Rolling Type of Rolling Roll to Right Level of Assist Minimal Assistance,1 Person Assistance Supine to Sit Supine to Sit Minimal Assistance,1 Person Assistance Sit to Supine Sit to Supine Contact Guard Assistance Scooting Scooting to Edge of Bed Minimal Assistance Scooting Up and Down in Bed Minimal Assistance PT-Transfer Assessment Sit to and From Stand Sit to and from Stand Minimal Assistance Comments Mobility Comments Min A d/t posterior lean and ataxic static standing balance , negative orthostatics with BP and HR in left UE: supine 118/70; standing 133/72, 79. PT-Balance Assessment Sitting Balance and Reactions Static Sitting Balance Ability Poor Dynamic Sitting Balance Ability Poor M5 PT-IP Objective Assessments Start: 07/02/24 14:02 Freq: NEEDED Status: Active Protocol: Document 07/02/24 15:35 MB (Rec: 07/02/24 16:09 MB [id number]) Orientation Orientation/Cognition Level of Alertness Alert Gross Range of Motion Upper Extremity ROM Impairments Defer to OT Lower Extremity ROM Assessment Within Functional Limits Strength Lower Extremity Strength Assessment Left Impaired Hip Left hip flexion 3-/5 Knee Left knee extension and flexion 4/5 Ankle Left ankle DF 4+/5; great toe extension 4/5 Coordination Assessment Gross Coordination Gross Coordination Impaired Assessment Foot Tapping Test Mod impaired left Heel on Hernandez Test Mod Impaired left Sensation Assessment Sensation Gross Sensation Left LE Impaired Light Touch Impaired Muscle Tone Muscle Tone WNL Yes Other Assessments Other Other Assessments Oculomotor screen positive for one beat spontaneous nystagmus when pt opens eyes and then he accommodates, with eye ROM, mild increased right beat nystagmus with right looking and less left beat nystagmus with left looking, very faint upbeat nystagmus with looking downward, corrective saccade with covering eyes, left more than right M7 PT-IP Assessment and Plan Start: 07/02/24 14:02 Freq: NEEDED Status: Active Protocol: Document 07/02/24 15:35 MB (Rec: 07/02/24 16:09 MB [id number]) PT Summary Assessment and Plan Potential Rehabilitation Potential Good Status of Condition at Evaluation Evolving Summary Impairments Strength,Balance,Coordination, Sensation,Bed Mobility, Transfers,Gait,Activity Tolerance Progress Towards Goals Slow Progress due to Medical Issues Assessment Summary Pt is a 69 y/o male presenting with central sourced dizziness, spontaneous nystagmus that follows central pattern, dysmetria, left sided weakness and decreased balance. He becomes dizzy and nauseated with testing today and so gait training deferred. Given central symptoms, pt may respond best to therapies when pre-medicated with anti- emetic or ORE MINER calming medication. Will progress balance, gait and Heather- Cawthorne exercises next date. 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 Recommend acute rehab at d/c. Goals Bed Mobility Goal Independent Transfer Goal Independent Gait Goal Independent Gait Distance 75 Other Goals Pt will perform WNLs on FGA to decrease fall risk. Pt will perform Heather- Cawthorne exercises in supine with I. Days to Meet Goals 5 Frequency of Treatment Frequency Of Treatment Once a Day Treatment Plan Physical Therapy Treatment Plan Bed Mobility Training,Transfer Training,Gait Training, Therapeutic Exercise,Balance Retraining,Discharge Planning, Hot or Cold Pack,Neuromuscular Re-ed,Coordination Retraining ,Manual Therapy Precautions Other Precautions Fall risk, nausea Recommendations To Nursing Amount of Assist Needed 2 Person Assist Discharge Recommendations PT Discharge Recommendations Acute Rehab Transportation Needs at Discharge Wheelchair/Cabulance
--- NOTE | 2024-07-02 16:21 | DI.ECHO.S_ITS ---
[facility]+ [facility] : : [address] : : [place] : : [id number] : : Phone: [phone] Echocardiogram Report + + :Name: CARLOS URENA Study Date: 07/03/2024 Height: 67 in : :[facility] ReadingLocation: Weight: 165 lb : : Gender: Male BSA: 1.9 m2 : :: 1955 Age: 69 yrs BP: 113/61 mmHg: :Reason For Study: TIA : :Ordering Physician: QUINN, : :KATHLEEN Wells Performed By: Elisa Lowery : :Referring: KATHLEEN BALL : + + Interpretation Summary 1) Normal left ventricular thickness, size, wall motion, and systolic function (EF 60-65%). 2) Normal right ventricular size and function. 3) No significant valvular abnormalities. 4) Injection of contrast documented no interatrial shunt. 5) No prior Echo available for comparison. Procedure: A two-dimensional transthoracic echocardiogram with color flow and Doppler was performed. The study quality was technically adequate. There is no prior echocardiogram noted for this patient. A saline contrast injection was performed to assess for cardiac shunting. The injection was performed through an intravenous line in the right arm. The patient was in sinus rhythm with heart rates between 61-77 bpm during the exam. Left Ventricle: The left ventricle is normal in size and wall thickness. The ejection fraction is estimated to be 60-65%. Left ventricular systolic function appears normal without focal wall motion abnormalities. Diastolic parameters suggest a relaxation abnormality of the left ventricle, consistent with probable normal filling pressures. Right Ventricle: The right ventricle is normal in size and function. Atria: The left atrial size is normal. Right atrial size is normal. There is no Doppler evidence for an interatrial shunt. Injection of contrast documented no interatrial shunt. Mitral Valve: The mitral valve is normal in structure and function. There is trace mitral regurgitation. Aortic Valve: The aortic valve is trileaflet. The aortic valve opens well. There is no aortic valve stenosis. There is trace aortic regurgitation. Tricuspid Valve: The tricuspid valve is normal in structure and function. No tricuspid regurgitation. Pulmonic Valve: The pulmonic valve leaflets are thin and pliable; valve motion is normal. There is trace pulmonic regurgitation. Great Vessels: The aortic root is normal size. The dimensions of the ascending aorta are normal. The IVC is of normal diameter and collapses greater than 50% with a sniff. This suggests a low right atrial pressure of 3 mm Hg. Pericardium/ Pleura There is no pericardial effusion. There is no pleural effusion. MMode/2D Measurements & Calculations LVIDd: 4.6 cm LVOT diam: 2.0 cm LVIDs: 3.0 cm Ao root diam: 3.1 cm FS: 35.4 % asc Aorta Diam: 2.9 cm EPSS: 0.85 cm IVSd: 0.93 cm LVPWd: 0.88 cm LV sinclair. diameter/BSA (cm/m^2): 2.5 LV sys. diameter/BSA (cm/m^2): 1.6 LA A2 area: 13.4 cm2 RA long axis: 4.7 cm LA A4 area: 13.0 cm2 RA area: 13.5 cm2 LA length (vol): 4.7 cm RA vol: 32.9 ml LA vol: 31.8 ml RA : 17.7 ml/m2 LA vol index: 17.1 ml/m2 IVC diam: 1.1 cm RVD1 (basal): 2.7 cm TAPSE: 1.7 cm Doppler Measurements & Calculations Ao V2 max: 136.9 cm/sec LVOT Max Neno: 93.4 cm/sec Ao V2 mean: 84.4 cm/sec LV V1 max P.5 mmHg Ao max P.5 mmHg LV V1 VTI: 20.5 cm Ao mean P.3 mmHg FE(I,D): 2.7 cm2 Ao V2 VTI: 24.7 cm FE(V,D): 2.2 cm2 sev ratio: 0.83 FE indexed to BSA (cm^2/m^2): 1.4 AI P1/2t: 687.1 msec AI dec slope: 171.9 cm/sec2 MV E max neno: 58.4 cm/sec PA V2 max: 89.8 cm/sec MV A max neno: 57.2 cm/sec PA V2 mean: 59.0 cm/sec MV E/A: 1.0 PA mean P.6 mmHg Med Peak E' Neno: 6.2 cm/sec PA pr(Accel): 34.5 mmHg E/E' med: 9.4 Lat Peak E' Neno: 10.1 cm/sec E/E' lat: 5.8 E/e' average: 7.6 MV dec time: 0.26 sec SV(LVOT): 65.8 ml Reading Physician:09:23 AM
--- NOTE | 2024-07-02 19:58 | PC.NURSE ---
Patient up from ER approx 1430, patient wanted to stand and step into bed. Patient complains of dizziness and nausea, he feels better laying on his right side, able to turn himself in bed. Patient wearing his own pants, and declines to remove at this time. Urinal placed within reach. Patient axox3, vss, denies pain at this time. Notes continued dullness of sensation to left lower leg and left foot. No drift to left leg or arm during evaluation.
[2024-07-02] MEDS: diazePAM 5 MG TABLET PO (20:12)
[2024-07-02] MEDS: NICOTINE 21 MG PATCH TOP (20:13)
[2024-07-03] VITALS: BP 115/63; PULSE 95; RESP 19; TEMP 36.3; O2SAT 97
[2024-07-03 04:00] VITALS: BP 113/61; PULSE 71; RESP 17; TEMP 36.7; O2SAT 95
--- NOTE | 2024-07-03 08:00 | DI.US.S_ITS ---
PROCEDURE: US CAROTID DOPPLER BI INDICATIONS: CVA TECHNIQUE: Color and pulse Doppler interrogation was performed of both carotid systems, with image documentation and velocity measurements. COMPARISON: None. FINDINGS: Stenosis calculations are based on SRU (Society of Radiologists in Ultrasound) criteria. Right side: Brachial blood pressure: 110/64 mm Hg. Common carotid artery peak systolic velocity: 76 cm/sec. Internal carotid artery peak systolic velocity: 75 cm/sec. Internal carotid artery end diastolic velocity: 26 cm/sec. External carotid artery peak systolic velocity: 109 cm/sec. ICA/CCA peak systolic ratio: 1.0 . Christensen scale imaging description: Mild diffuse non flow limiting plaque, less than 50% Percent internal carotid artery stenosis: Less than 50% by peak systolic velocity criteria . Vertebral artery: Flow direction is antegrade. Left side: Brachial blood pressure: 97/50 mm Hg. Common carotid artery peak systolic velocity: 117 cm/sec. Internal carotid artery peak systolic velocity: 85 cm/sec. Internal carotid artery end diastolic velocity: 31 cm/sec. External carotid artery peak systolic velocity: 138 cm/sec. ICA/CCA peak systolic ratio: 0.7 . Christensen scale imaging description: Mild diffuse non flow limiting plaque, less than 50% Percent internal carotid artery stenosis: Less than 50% by peak systolic velocity criteria. Vertebral artery: Flow direction is antegrade. IMPRESSION: 1. Mild diffuse bilateral carotid plaque without significant stenosis. 2. Note is made of a differential in blood flow between the right and left brachial areas suggesting that there may be some degree of left-sided stenosis, possibly the left subclavian or more distally. Of note, there is anterograde flow in both vertebral arteries. Dictated by: Lew Sy M.D. on 07/03/2024 at 9:21 Approved by: Lew Sy M.D. on 07/03/2024 at 9:52
[2024-07-03 09:00] VITALS: BP 110/68; PULSE 69; RESP 18; O2SAT 97
[2024-07-03] MEDS: buPROPion XL 150 MG TAB PO (09:37)
[2024-07-03] MEDS: ATORVASTATIN 20 MG TABLET 80 MG PO (09:37)
[2024-07-03] MEDS: NICOTINE 21 MG PATCH TOP (09:37)
[2024-07-03] MEDS: ENOXAPARIN 40 MG/0.4 ML SYRINGE SUBCUT (09:38)
--- NOTE | 2024-07-03 10:34 | PT.IPTN ---
Current Diagnoses Cerebral infarction, unspecified (07/02/24) Physical Therapy Treatment Note M2 PT-IP Current Condition Start: 07/02/24 14:02 Freq: NEEDED Status: Active Protocol: Document 07/02/24 15:35 MB (Rec: 07/02/24 16:09 MB [id number]) Physical Therapy Current Condition Current Condition Evaluation Date 07/02/24 Treatment Diagnosis R vertebral artery occlusion, changes right pontomedullary area, dizziness M3 PT-IP Subjective Start: 07/02/24 14:02 Freq: NEEDED Status: Active Protocol: Document 07/03/24 10:55 TS (Rec: 07/03/24 11:16 TS [id number]) Subjective Physical Therapy Visit Type Type Treatment Note Visit Start Time 10:30 Visit Stop Time 10:54 Number of CONTINUITY MANAGER Visits 1 Physical Therapy Visit Comments Patient Comments Pt found resting in bed, reports no dizziness and is feeling better today. M4 PT-IP Mobility and Gait Start: 07/02/24 14:02 Freq: NEEDED Status: Active Protocol: Document 07/03/24 10:55 TS (Rec: 07/03/24 11:16 TS [id number]) PT-Bed Mobility Assessment Rolling Level of Assist Standby Assistance Supine to Sit Supine to Sit Standby Assistance Sit to Supine Sit to Supine Standby Assistance Scooting Scooting to Edge of Bed Standby Assistance Scooting Up and Down in Bed Standby Assistance PT-Transfer Assessment Sit to and From Stand Sit to and from Stand Standby Assistance Equipment Transfer Assistive Device None,Gait Belt,Front Wheeled Walker Comments Mobility Comments Pt performs eye movements in bend slowly/quickly, head turns sitting EOB. Pt reports feeling no symptoms of dizziness. Supine to sit SBA. STS with FWW SBA. He ambualtes in the hallway ~200'SBA with FWW and ~100'SBA with no FWW. Sit to supine into bed SBA with logroll. Pt reports feeling soem weakness on L side. Pt was left in bed, all needs met. Gait Assessment Gait Gait Assistance Required: Standby Assistance Distance (Feet) 300 Assistive Devices Assistive Device None,Gait Belt,Front Wheeled Walker Gait Deviations General Gait Pattern Narrow Based Gait Factors Limiting Gait Function Factors Limiting Gait Function Poor Balance PT-Balance Assessment Sitting Balance and Reactions Static Sitting Balance Ability Normal Dynamic Sitting Balance Ability Normal Standing Balance and Reactions Static Standing Balance Ability Good Dynamic Standing Balance Ability Good Device Used FWW/none M5 PT-IP Objective Assessments Start: 07/02/24 14:02 Freq: NEEDED Status: Active Protocol: Document 07/02/24 15:35 MB (Rec: 07/02/24 16:09 MB [id number]) Orientation Orientation/Cognition Level of Alertness Alert Gross Range of Motion Upper Extremity ROM Impairments Defer to OT Lower Extremity ROM Assessment Within Functional Limits Strength Lower Extremity Strength Assessment Left Impaired Hip Left hip flexion 3-/5 Knee Left knee extension and flexion 4/5 Ankle Left ankle DF 4+/5; great toe extension 4/5 Coordination Assessment Gross Coordination Gross Coordination Impaired Assessment Foot Tapping Test Mod impaired left Heel on Hernandez Test Mod Impaired left Sensation Assessment Sensation Gross Sensation Left LE Impaired Light Touch Impaired Muscle Tone Muscle Tone WNL Yes Other Assessments Other Other Assessments Oculomotor screen positive for one beat spontaneous nystagmus when pt opens eyes and then he accommodates, with eye ROM, mild increased right beat nystagmus with right looking and less left beat nystagmus with left looking, very faint upbeat nystagmus with looking downward, corrective saccade with covering eyes, left more than right M7 PT-IP Assessment and Plan Start: 07/02/24 14:02 Freq: NEEDED Status: Active Protocol: Document 07/03/24 10:55 TS (Rec: 07/03/24 11:16 TS [id number]) PT Summary Assessment and Plan Potential Rehabilitation Potential Good Summary Impairments Strength,Balance,Coordination, Sensation,Bed Mobility, Transfers,Gait,Activity Tolerance Progress Towards Goals Progressing Toward Goals Assessment Summary Arpan is making good progress with his mobility. He reports no dizziness with mobility or head turns/eye movement exercises. He is SBA for most mobility. He progressed his gait to ~200 with FWW and ~100 with no AD. PT is recommending pt return home with HHPT/oupatient PT. Pt agrees with this plan. Goals Bed Mobility Goal Independent Transfer Goal Independent Gait Goal Independent Gait Distance 75 Other Goals Pt will perform WNLs on FGA to decrease fall risk. Pt will perform Heather- Cawthorne exercises in supine with I. Days to Meet Goals 5 Frequency of Treatment Frequency Of Treatment Once a Day Treatment Plan Physical Therapy Treatment Plan Bed Mobility Training,Transfer Training,Gait Training, Therapeutic Exercise,Balance Retraining,Discharge Planning, Hot or Cold Pack,Neuromuscular Re-ed,Coordination Retraining ,Manual Therapy Precautions Other Precautions Fall risk, nausea Recommendations To Nursing Amount of Assist Needed Standby Assistance Discharge Recommendations PT Discharge Recommendations Home with Assistance,Home Health,Outpatient PT Transportation Needs at Discharge Private Vehicle
--- NOTE | 2024-07-03 11:14 | CM.DANOTE ---
Initial DCP Assessment Note Pt is a 69 yo male, resident of [place], admitted INPT for confirmed CVA and vertebral artery occlusion seen on imaging. PCP: Juan Pablo Abbasi Payer: Chana/ RAYSHAWN Bernabe Reviewed chart, and met w/patient this morning; reviewed initial therapy recommendations for acute inpatient rehab. Discussed locations. Patient states apprehension about missing out on work, however, feels if recommended, he will do whats needed. Referral sent to [facility] acute inpatient rehab and patient tentatively accepted pending insurance auth. [place] late this morning that patient's sx had greatly improved, PT=Home, patient no longer needs inpatient rehab. Patient pleased and hopeful to return home today. Updated Ashley at [facility] and updated Dr Martinez. No barriers identified at this time to patient's safe discharge home, close outpatient f/u recommended. INDU Abernathy Discharge Planning/Care Management CM Discharge Assessment Start: 07/03/24 10:59 Freq: Status: Active Protocol: Document 07/03/24 10:59 DYLAN (Rec: 07/03/24 11:14 DYLAN [id number]) Discharge Planning Assessment Assigned Canvas [employer] Machine INDU [place]on DPOA/Assigned Designee Name Jonah Jacome, Contact Information [phone] Advance Directives? No Advance Directives on File No History Provided By Patient,Medical Record Prior Living Arrangements House Household Members family Type of transporation used prior to Drives own vehicle admit Independent with ADL's Yes Is patient alert and oriented? Yes Barriers to Discharge No Comment Home with close outpatient follow up anticipated Discharge Plan Home Transportation Arrangement Friends or family Referrals Initiated None needed
--- NOTE | 2024-07-03 12:00 | OT.IP.TRT ---
Current Diagnoses Cerebral infarction, unspecified (07/02/24) Occupational Therapy Treatment Note M2 OT-IP Current Condition Start: 07/02/24 15:29 Freq: Status: Active Protocol: Document 07/02/24 15:59 [facility] (Rec: 07/02/24 16:12 [facility] [id number]) Occupational Therapy Current Condition Current Condition Evaluation Date 07/02/24 Treatment Diagnosis ?small focus of restricted diffusion with R anterior pontomedullary junctio Diagnosis Onset Date 07/02/24 M3 OT- IP Subjective and Pain Start: 07/02/24 15:29 Freq: Status: Active Protocol: Document 07/03/24 12:02 [facility] (Rec: 07/03/24 12:13 [facility] [id number]) OT- Subjective Occupational Therapy Visit Type Type Treatment Note Visit Start Time 11:15 Visit Stop Time 12:00 Occupational Therapy Visit Comments Patient Comments Pt agreed to do cognitive assessment and get up. Patient/Caregiver Goals TO go home. OT Pain Assessment Pain When Pain Assessed At Rest Pain Present Pain Present Denied Pain M4 OT- IP ADL's Start: 07/02/24 15:29 Freq: Status: Active Protocol: Document 07/03/24 12:02 [facility] (Rec: 07/03/24 12:13 [facility] [id number]) OT [id number]-[id number] General Evaluation Self-Feeding Ability Independent OT ADL-Grooming Comments OT Grooming Comments No issues. OT ADL-Oral Care Comments Oral Care Comments NO issues. OT ADL-Dressing Comments OT Dressing Comments Pt able to do with increased time. OT ADL-Bathing Comments OT Bathing Comments Pt will benefit from use of his built in seat for showering needs. M5 OT- IP IADL's Start: 07/02/24 15:29 Freq: Status: Active Protocol: Document 07/02/24 15:59 [facility] (Rec: 07/02/24 16:12 [facility] [id number]) OT-Instrumental Activities of Daily Living Deficits IADL Deficits Identified Deficits Home Safety Awareness Awareness of Need for Assistance at Home Good Awareness Medication Management Medication Management Comments Pt states did prior. Meal Preparation Meal Preparation Comments Pt will need assist at this time. Driving Driving Comments Pt will need assist at this time. M6 OT- IP Functional Cognition Start: 07/02/24 15:29 Freq: Status: Active Protocol: Document 07/03/24 12:02 [facility] (Rec: 07/03/24 12:13 [facility] [id number]) Cognitive Factors Limiting Selfcare Function Cognitive Tests SLUMS Pt scored 23/30 which implies mild neurocognitive disorders. Pt able to recall 4/5 objects after time passed, not able to draw the hour hands correctly after time given, and able to answer 2/4 questions right after paragraph read. Cognitive Comments Cognitive Assessment Comments Pt scored 150 seconds on [place] Making Part B which implies severe deficits for visual attention, speed of processing , executive functioning, task switching and mental flexibility . Pt suggested not to drive at this time. Pt's score may also be affected as pt states not very good at remembering the alphabet as the assessment requring the pt to switch from numbers to letters. Pt able to answer all home safety questions with good accuracy. OT- Vision and Hearing OT- Vision Assessment Visual Convergence WFL Visual Najera WFL Diplopia Absent M7 OT- IP Mobility and Balance Start: 07/02/24 15:29 Freq: Status: Active Protocol: Document 07/03/24 12:02 [facility] (Rec: 07/03/24 12:13 [facility] [id number]) OT- Bed Mobility Assessment Supine to Sit Supine to Sit Assist Independent OT-Transfer Assessment Sit to and From Stand Sit to and from Stand Independent Transfers Transfer Ability Standby Assistance Comments Mobility Comments Pt able to move in the room independently without a device . but for uneven terrain would benefit from a cane. Pt able to push furniture in the room with good after and able to climb up to sit in the window still on his own. OT- Balance Assessment Sitting Balance and Reactions Static Sitting Balance Ability Normal Dynamic Sitting Balance Ability Normal Standing Balance and Reactions Static Standing Balance Ability Good Dynamic Standing Balance Ability Fair Comments Other Balance Tests/Deviations/Treatment Pt tend to arch his back while : standing and cues pt to activate his core more for upright posture. Pt able to stand on right foot 3 sec and left foot 1 sec. Pt will greatly benefit from outpt PT. M9 OT- IP Assessment and Plan Start: 07/02/24 15:29 Freq: Status: Active Protocol: Document 07/03/24 12:02 [facility] (Rec: 07/03/24 12:13 [facility] [id number]) OT Summary Assessment and Plan Potential Rehabilitation Potential Excellent Analytic Complexity at Evaluation Moderate Summary OT Impairments Balance,Functional Mobility, Grooming,Dressing,Toileting, Bathing,Toilet Transfers, Shower Transfers,Activity Tolerance Progress Towards Goals Progressing Toward Goals Assessment Summary Pt moving much better today and able to walk without a device in the room. Pt scored 23/30 on the SLUMS which implies mild neurocognitive disorder. Pt has decreased coordination left hand > right hand and decreased dynamic balance and would benefit from outpt PT and OT. Goals Self-Feeding Goal Independent Grooming Goal Independent Dressing Goal Independent Toileting Goal Independent Bathing Goal Independent Toilet Transfer Goal Independent Shower Transfer Goal Independent Days to Meet Goals 2 Frequency of Treatment Frequency Of Treatment Once a Day Treatment Plan OT Treatment Plan ADL Training,Functional Cognition Training,Functional Mobility,Patient/Family Education,Discharge Planning Discharge Recommendations OT Discharge Recommendations Home with Assistance, Outpatient PT Home Equipment Needs shower chair Transportation Needs at Discharge Private Vehicle
[2024-07-03 12:30] VITALS: BP 120/70; PULSE 77; RESP 15; TEMP 37.1; O2SAT 98
--- NOTE | 2024-07-03 13:12 | PC.NURSE ---
Patient is resting comfortably and talking to at this time. His lung sounds have some wheezes, patient is a smoker of 1 pack a day. He states that he has smoked all of his life. He can have speech difficulty but states this is because he does not have many teeth. He also states that he does feel some left sided weakness when ambulating. Patient may be discharged today.
[2024-07-03] MEDS: CLOPIDOGREL 75 MG TABLET PO (13:23)
[2024-07-03] MEDS: ASPIRIN EC 81 MG TABLET PO (13:23)
--- NOTE | 2024-07-03 13:30 | PM.DS.1 ---
History of Present Illness History of Present Illness Date Patient Seen: 07/03/24 Time Patient Seen: 13:30 Chief complaint: Dizziness Narrative: Met with patient and reviewed chart. Reviewed ER note, H&P, physical therapy notes from yesterday and today. Patient is doing markedly better today. He is having minimal deficit which is primarily in fine motor of his left upper extremity. PT evalfredo today recommended outpatient physical therapy. Patient himself says he feels 100% better. Patient states that he has previously had problems with alcohol disuse syndrome but has not had excessive amounts of alcohol intake for years. Will have a very small drink of rum every night. Patient does feel he could eat better. Currently his son and [id number] living with him. Patient was previously on Plavix but this was discontinued by air battle manager years ago, approximately 2 years ago. Patient is status post CABG and has 5 stents in his heart and 2 in his femoral arteries bilateral Patient is not having any claudication symptoms 12 point review of systems otherwise negative Discharge Providers Provider Date of admission: 07/02/24 11:28 Discharge Date: 07/03/24 Primary care physician: Juan Pablo Abbasi MD Consults: 07/02/24 11:49 Consult to Occupational Therapy Evaluate & Treat Comment: Physician Instructions: Evaluate and treat Consult to Physical Therapy Evaluate & Treat Comment: Physician Instructions: Evaluate and Treat Discharge provider: Maureen Martinez MD Summary Hospital Course Discharge Diagnosis: 1. BPPV 2. CVA 3. Vertebral artery occlusion, right V4 noted on CT angio of the head and MRI shows possible correlating defect 4. Hyperlipidemia 5. Peripheral vascular disease 6. Coronary artery disease 7. Tobacco use 8. Depression 9. Hypertension Hospital Course: Patient admitted to the hospital with probable CVA. He was loaded with Plavix and given a baby aspirin. Case was discussed with Neurology at and recommended dual antiplatelet therapy for 21 days with baby aspirin and Plavix and outpatient referral to possible had endarterectomy. CT angiogram showed 80% stenosis on the left carotid artery but carotid Doppler was negative for significant stenosis. Echo was completely normal. Normal EF. No valvular abnormalities. MRI of the head was reviewed and correlating to CT angio of the head. Patient's initial stroke scale was 4 and last night was 1. Patient was re-evaluated by Physical therapy today and still had some nystagmus but dizziness had completely resolved and patient had markedly improved with only fine motor deficit and recommendations were outpatient PT OT. Patient will be discharged home in stable condition Patient will follow up with Dr. Christy on Tuesday Patient will continue all outpatient medications except we will add Plavix 75 mg daily for 21 days and 81 mg of aspirin daily for 21 days he will continue with same statin therapy, lisinopril, metoprolol bupropion. Bupropion and Plavix will be sent to [facility]. Will consider Neurology and vascular referral as outpatient Status at Discharge Cognitive/behavioral status at discharge: oriented Functional status at discharge: independent ambulation Overall status at discharge: patient is progressing back to baseline Exam Vital Signs (past 8 hours): - 07/03/24 09:00 07/03/24 12:30 Temperature 98.7 F Pulse Rate 69 77 Respiratory Rate 18 15 Blood Pressure 110/68 120/70 Pulse Oximetry 97 98 Oxygen Flow Rate 0 Oxygen Delivery Method Room Air Oxygen Flow Rate 0 Narrative Exam Narrative: Alert and oriented no apparent distress HEENT is unremarkable except for poor dentition Neck: Supple without adenopathy or thyromegaly. No bruits Lungs show prolonged expiratory phase but no wheezes rhonchi or crackles Cor: Regular rate and rhythm without a murmur Abdomen: Positive bowel sounds, soft, nontender, nondistended Extremities no edema. Capillary refill time is about 3 seconds. Slightly delayed. Unable to palpate dorsalis pedis but posterior tibialis is 1+ bilaterally Neurologic exam shows Romberg negative. Cranial nerves 2-12 are grossly intact. Strength seems symmetric bilateral upper and lower extremities gait shows left lower leg externally rotated with no evidence of ataxia. [id number] slightly decreased on the left compared to the right but this could be the patient's right-handed. Fine motor is decreased with the left hand. Sensation is subjectively decreased left upper extremity. Objective Labs 07/02/24 09:18 07/02/24 09:18 Labs: Laboratory Results - last 24 hr 07/02/24 11:44 Urine Color Yellow Urine Appearance Clear Urine pH 7.0 Ur Specific [place] 1.010 Urine Protein Negative Urine Glucose (UA) Negative Urine Ketones 1+ H Urine Occult Blood Negative Urine Nitrate Negative Urine Bilirubin Negative Urine Urobilinogen 0.2 Ur Leukocyte Esterase Negative Urine RBC None seen Urine WBC 0-1/hpf Ur Squamous Epith Cells 0-1 /hpf Urine Bacteria Occasional (0-1) Ur Culture Indicated? Cult not indicated Vol Urine Centrifuged 10ml (spun) PFSH Medical History Hypertension Hyperlipidemia Peripheral vascular disease Surgical History Stented coronary artery S/P CABG x 4 Social History marital status: unmarried,single household members: family lives independently: Yes occupational status: employed Smoking Status: Current every day smoker alcohol intake: current substance use type: does not use Discharge Plan Discharge Plan Patient Disposition: Home Discharge orders & Medications Prescriptions: New clopidogrel 75 mg Tablet 75 mg PO DAILY Qty: 21 0RF aspirin 81 mg Tablet,Delayed Release (Dr/Ec) 81 mg PO DAILY Qty: 90 0RF bupropion HCl [Wellbutrin XL] 150 mg Tablet Extended Release 24 Hr 150 mg PO DAILY Qty: 30 3RF Continued aspirin [Adult Aspirin Regimen] 81 mg tablet,delayed release (DR/EC) 81 mg PO DAILY metoprolol tartrate 25 mg tablet 25 mg PO BID atorvastatin 80 mg tablet 80 mg PO DAILY bupropion HCl 150 mg tablet extended release 24 hr 150 mg PO QAM lisinopril 10 mg tablet 10 mg PO DAILY Follow up/Referrals: Juan Pablo Abbasi MD [Primary Care Provider] - Discharge Health Status Multidrug resistant organism: No MDRO Diet/Activity/Treatments Diet: Low-sodium and Low-cholesterol Visit Report/Discharge Packet Stand Alone Forms: Patient Portal/API, Stroke Signs & Symptoms Discharge Data Primary Care Provider: Juan Pablo Abbasi Quality VTE Deep Vein Thrombosis/Pulmonary Embolism Present on Admission: No
--- NOTE | 2024-07-03 13:41 | P.DS_ITS ---
History of Present Illness History of Present Illness Chief complaint: Dizziness Narrative: Met with patient and reviewed chart. Reviewed ER note, H&P, physical therapy notes from yesterday and today. Patient is doing markedly better today. He is having minimal deficit which is primarily in fine motor of his left upper extremity. PT vanessa today recommended outpatient physical therapy. Patient himself says he feels 100% better. Patient states that he has previously had problems with alcohol disuse syndrome but has not had excessive amounts of alcohol intake for years. Will have a very small drink of rum every night. Patient does feel he could eat better. Currently his son and [id number] living with him. Patient was previously on Plavix but this was discontinued by manager corporate responsibility years ago, approximately 2 years ago. Patient is status post CABG and has 5 stents in his heart and 2 in his femoral arteries bilateral Patient is not having any claudication symptoms 12 point review of systems otherwise negative Discharge Providers Provider Date of admission: 07/02/24 11:28 Discharge Date: 07/03/24 Primary care physician: Juan Pablo Abbasi MD Consults: 07/02/24 11:49 Consult to Occupational Therapy Evaluate & Treat Comment: Physician Instructions: Evaluate and treat Consult to Physical Therapy Evaluate & Treat Comment: Physician Instructions: Evaluate and Treat Discharge provider: Maureen Martinez MD Exam Vital Signs (past 8 hours): - 07/03/24 09:00 07/03/24 12:30 Temperature 98.7 F Pulse Rate 69 77 Respiratory Rate 18 15 Blood Pressure 110/68 120/70 Pulse Oximetry 97 98 Oxygen Flow Rate 0 Oxygen Delivery Method Room Air Oxygen Flow Rate 0 Objective Labs 07/02/24 09:18 07/02/24 09:18 Labs: Laboratory Results - last 24 hr 07/02/24 11:44 Urine Color Yellow Urine Appearance Clear Urine pH 7.0 Ur Specific [place] 1.010 Urine Protein Negative Urine Glucose (UA) Negative Urine Ketones 1+ H Urine Occult Blood Negative Urine Nitrate Negative Urine Bilirubin Negative Urine Urobilinogen 0.2 Ur Leukocyte Esterase Negative Urine RBC None seen Urine WBC 0-1/hpf Ur Squamous Epith Cells 0-1 /hpf Urine Bacteria Occasional (0-1) Ur Culture Indicated? Cult not indicated Vol Urine Centrifuged 10ml (spun) [facility] Medical History Hypertension Hyperlipidemia Peripheral vascular disease Surgical History Stented coronary artery S/P CABG x 4 Social History marital status: unmarried,single household members: family lives independently: Yes occupational status: employed Smoking Status: Current every day smoker alcohol intake: current substance use type: does not use Discharge Plan Discharge Plan Patient Disposition: Home Discharge orders & Medications Prescriptions: New clopidogrel 75 mg Tablet 75 mg PO DAILY Qty: 21 0RF aspirin 81 mg Tablet,Delayed Release (Dr/Ec) 81 mg PO DAILY Qty: 90 0RF bupropion HCl [Wellbutrin XL] 150 mg Tablet Extended Release 24 Hr 150 mg PO DAILY Qty: 30 3RF Continued aspirin [Adult Aspirin Regimen] 81 mg tablet,delayed release (DR/EC) 81 mg PO DAILY metoprolol tartrate 25 mg tablet 25 mg PO BID atorvastatin 80 mg tablet 80 mg PO DAILY bupropion HCl 150 mg tablet extended release 24 hr 150 mg PO QAM lisinopril 10 mg tablet 10 mg PO DAILY Follow up/Referrals: Juan Pablo Abbasi MD [Primary Care Provider] - Discharge Health Status Multidrug resistant organism: No MDRO Diet/Activity/Treatments Diet: Low-sodium and Low-cholesterol Visit Report/Discharge Packet Stand Alone Forms: Patient Portal/API, Stroke Signs & Symptoms Discharge Data Primary Care Provider: Juan Pablo Abbasi Quality VTE Deep Vein Thrombosis/Pulmonary Embolism Present on Admission: No
== END 2024-07-03 16:08 | disposition home or self-care (01) | DRG 66 ==
LOC: ED 11:16 → AC 12:22
PROVIDERS: Admitting Provider Family Medicine; Emergency Provider Emergency Medicine; PCP Family Medicine; Referring Provider Emergency Medicine; Visit Provider Family Medicine
DX: I63.211 Cerebral infarction due to unspecified occlusion or stenosis of right vertebral artery (principal); I10 Essential (primary) hypertension; H81.10 Benign paroxysmal vertigo, unspecified ear; E78.5 Hyperlipidemia, unspecified; I73.9 Peripheral vascular disease, unspecified; I25.10 Atherosclerotic heart disease of native coronary artery without angina pectoris; R29.704 NIHSS score 4; R29.701 NIHSS score 1; R27.8 Other lack of coordination; Z95.5 Presence of coronary angioplasty implant and graft; Z95.1 Presence of aortocoronary bypass graft; Z95.820 Peripheral vascular angioplasty status with implants and grafts; Z72.0 Tobacco use
CPT/HCPCS: 70450; 70496; 70498; 70551; 80053; 80305; 80320; 81001; 82550; 84484; 85025; 85610; 85730; 93005; 93306; 93880; 97116; 97129; 97130; 97162; 97166; 97530; 99285; G0378; J1650; J2405; Q9967